=== PATIENT | female | born 1965 | race Caucasian/White ===

== ENCOUNTER 2016-12-18 07:57 | Observation (INO) | payer BC ==
[2016-12-18] MEDS ORDERED: Sodium Chloride 0.9% 1,000 ML PRIMARY IV ONE (08:13)
[2016-12-18] MEDS ORDERED: ASPIRIN 81 MG (BABY) CHEWABLE TABLET PO ONE (08:13)
[2016-12-18] MEDS ORDERED: NORMAL SALINE 10 ML SYRINGE FLUSH IVP PRN ×2 (08:13→10:01)
[2016-12-18 08:21] LABS: BASOPHILS # (AUTO) 0.04 10*3/UL; BASOPHILS % (AUTO) 0.5 % (0-1); EOSINOPHILS % (AUTO) 1.1 % (0-8); HEMATOCRIT 45.6 % (37.0-47.0); HEMOGLOBIN 15.3 g/dL (12.0-16.0); IMM GRAN % (AUTO) 0.1 % (0-5); IMM GRAN# (AUTO) 0.01 10*3/UL; LYMPHOCYTES # (AUTO) 1.95 10*3/uL; LYMPHOCYTES % (AUTO) 24.2 % (10-50); MEAN CORPUSCULAR HEMOGLOBIN 28.9 PG (27-31); MEAN CORPUSCULAR HGB CONC 33.6 g/dL (33-37); MEAN PLATELET VOLUME 10.9 FL (7.4-12.2); MONOCYTES # (AUTO) 0.51 10*3/UL (0.3-0.8); MONOCYTES % (AUTO) 6.3 % (5-15); NEUTROPHILS # (AUTO) 5.46 10*3/UL; NEUTROPHILS % (AUTO) 67.8 % (50-80); RDW COEFFICIENT OF VARIATION 12.9 % (11.5-14.5); RED BLOOD COUNT 5.29 10^6/uL (4.20-5.40); WHITE BLOOD COUNT 8.06 10^3/uL (4.8-10.8)
[2016-12-18 08:26] LABS: AMYLASE 53 U/L (30-110); ASPARTATE AMINO TRANSFERASE 21 IU/L (8-39); BILIRUBIN,TOTAL 0.6 mg/dL (0.3-1.2); BLOOD UREA NITROGEN 13 mg/dL (7-22); BUN/CREATININE RATIO 16.25 (6-20); CALCIUM 9.5 mg/dL (8.7-10.7); CHLORIDE 104 meq/L (98-112); CREATININE 0.8 mg/dL (0.50-1.20); EST GLOMERULAR FILTRATION > 60 (>60 ml/min/1.73m(2)); GLUCOSE 112 mg/dL (78-110); MAGNESIUM 1.9 mg/dL (1.6-2.4); POTASSIUM 3.4 meq/L (3.8-5.2); SODIUM 142 meq/L (135-145); TOTAL PROTEIN 7.4 g/dL (6.1-8.0)
[2016-12-18 08:28] LABS: PLATELET MORPHOLOGY COMMENT NORMAL MORPHOLOGY (NORM)
--- NOTE | 2016-12-18 08:39 | PDOC ---
Chest Pain HPI - General Chief Complaint: Chest Pain Stated Complaint: Chest pressure Date Seen by Provider: 12/18/16 Time Seen by Provider: 08:05 Source: Patient Exam Limitations: POSITIVE: No limitations Treatment Prior to Arrival: REPORTS: None Nurse's Notes Reviewed & Considered: Yes - History of Present Illness Initial Comments: The patient is a 51-year-old female who presents to the emergency department with chest pain. She states that last night she felt like she had an episode of rapid heartbeat and pounding. She subsequently had developed a midsternal chest pain associated with that. This subsequently resolved and she was able to sleep. When she got up this morning and started getting ready to take her grandson to school she had onset of pain in the left side of her chest. This pain was fairly constant however moved to different areas of her chest. She had some associated lightheadedness however denies palpitation, shortness of breath, nausea or diaphoresis. She states that she did have an episode of mild chest pain on Thursday last week associated with helping out on a project at [employer]. She states that currently while lying in the bed her pain has resolved. She reports that she has had some acid reflux symptoms recently including increased belching. She denies any history of coronary artery disease , hypertension, diabetes or hyperlipidemia. She does smoke approximately 1 pack of cigarettes per day and her dad has a history of heart disease. She did have a mild upper respiratory infection last week which seemed to have resolved. She denies any increased pain with taking a deep breath and denies any pain or swelling in her legs. She does not take any estrogen her form of control. - Patient Home Medications Home Medications: Home Medications Ascorbic Acid [Vitamin C] 1,000 mg PO QD tab 02/01/15 Multivitamin [Multi-Vitamin Daily] 1 each PO QD tab 02/01/15 Vitamin B Complex [B Complex] 1 each PO DAILY tab 02/01/15 Alprazolam [Xanax] 1 tab PO BID PRN #60 tab 03/19/16 Levothyroxine Sodium [Levoxyl] 1 tab PO DAILY #30 tab 11/27/16 Liothyronine Sodium [Cytomel] 1 tab PO DAILY #30 tab 11/27/16 - Patient Allergies Allergies/Adverse Reactions: Allergies Allergy/AdvReac Type Severity Reaction Status Date / Time No Known Allergies Allergy Verified 12/18/16 08:05 Past Medical History - heen HEENT History: Other (please comment) Additional HEENT History: WEARS GLASSES Cardiovascular History: Denies History Respiratory History: Denies History Gastrointestinal History: Denies History Genitourinary History: Denies History Endocrine History: Hypothyroidism Musculoskeletal History: Denies History Prosthesis or Implant: No Neurological History: Other (please comment) Additional Neurological History: CHRONIC NECK ISSUES WITH NECK DISCOMFORT AND ARM DISCOMFORT Blood Disorders: Denies History Psychiatric History: Denies History History of Sexually Transmitted Diseases: No Female Reproductive History: Denies History LMP: 1 YEAR AGO Cancer History: Denies History In Past Year Been Physically Harmed or Verbally Threatened: No (PER PATIENT) History of MDRO: No History of Other Communicable Diseases: No Tobacco Use: Current Every Day Smoker Alcohol Use: Rarely Substance Use Type: None Previous Surgical History: Yes Type / Date of Surgery: CHOLECYTECTOMY. NECK FUSION/ C4-C7 x3. URETHRAL SLING Anesthesia Reactions: No Malignant Hyperthermia: No Family History of Malignant Hyperthermia: No Significant Family History: Heart disease Additional Family History: FATHER HAD HEART ATTACK AT AGE 52 Past Medical History Reviewed: Reviewed - No Changes ROS - Limitations ROS Limitations: No Limitations Constitution: DENIES: Chills, Fever Cardiovascular: REPORTS: Chest Pain, Heart Racing (Last night, she states that she gets this every once in a while however last night this seemed more intense than usual), Blood Pressure Problem (She states that her blood pressure seemed like it was going up at home when she checked this morning). DENIES: Heart Palpitations, Edema Respiratory: DENIES: Cough Non Productive, Cough Productive, Hurts To Breathe, Shortness Of Breath Neurological: REPORTS: Denies Neuro Symptoms Gastrointestinal: DENIES: Abdominal Pain, Nausea, Vomitting Endocrine: REPORTS: Denies Symptoms Musculoskeletal: DENIES: Calf Pain, Lower Extremity Swelling Eyes: REPORTS: Denies Symptoms ENT: REPORTS: Denies Symptoms Skin: DENIES: Rash Chest Pain PE - General Appearance General Appearance: REPORTS: Alert, Cooperative, No Acute Distress - HEENT HEENT: POSITIVE: Head Inspection Nml, Eyes Inspection Nml, Ears Inspection Nml, Nose Inspection Nml, PERRL, EOMI - Neck Neck: REPORTS: Normal Inspection. DENIES: Lymphadenopathy - Respiratory Respiratory: REPORTS: No Respiratory Distress, Breath Sounds Normal - Cardiovascular Cardiovascular: REPORTS: Regular Rate and Rhythm, Heart Sounds Normal Peripheral Pulses: Dorsalis-pedis (R): 2+, Dorsalis-pedis (L): 2+ - Abdomen Abdomen: Soft: (All Quadrants), Denies Tenderness: (All Quadrants), No Distention: (All Quadrants) - Skin Skin: REPORTS: Intact, No Rash - Extremities Extremity: Normal ROM: (All Extremities), Normal Inspection: (All Extremities) - Neurological / Psychological Neurological: POSITIVE: Affect Apporpriate, Motor Normal, Sensation Normal, Other (No focal neurologic deficits) Chest Pain Progress - Results Reviewed by me Xrays/CTs/US Reviewed by me: Yes Lab Results Reviewed: Yes Lab Results:: Laboratory Results 12/18/16 Range/Units 08:06 WBC 8.06 (4.8-10.8) 10^3/uL RBC 5.29 (4.20-5.40) 10^6/uL Hgb 15.3 (12.0-16.0) g/dL Hct 45.6 (37.0-47.0) % MCV 86.2 (81-99) FL MCH 28.9 (27-31) PG MCHC 33.6 (33-37) g/dL RDW Std Deviation 40.7 (39-50) fL RDW Coeff of Kameron 12.9 (11.5-14.5) % Plt Count 226 (140-350) 10*3/uL MPV 10.9 (7.4-12.2) FL Immature Gran % (Auto) 0.1 (0-5) % Neut % (Auto) 67.8 (50-80) % Lymph % (Auto) 24.2 (10-50) % [place] % (Auto) 6.3 (5-15) % Eos % (Auto) 1.1 (0-8) % Baso % (Auto) 0.5 (0-1) % Immature Gran # (Auto) 0.01 10*3/UL Neut # (Auto) 5.46 10*3/UL Lymph # (Auto) 1.95 10*3/uL [place] # (Auto) 0.51 (0.3-0.8) 10*3/UL Eos # (Auto) 0.09 10*3/UL Baso # (Auto) 0.04 10*3/UL WBC Morphology Comment Normal morphology (NORM) Plt Morphology Comment Normal morphology (NORM) RBC Morph Comment Normal morphology (NORM) D-Dimer 0.25 (0.00-0.59) mg/L Sodium 142 (135-145) meq/L Potassium 3.4 L (3.8-5.2) meq/L Chloride 104 (98-112) meq/L Carbon Dioxide 26 (23-33) meq/L Anion Gap 12 (5-20) BUN 13 (7-22) mg/dL Creatinine 0.8 (0.50-1.20) mg/dL Estimated GFR > 60 (>60 ml/min/1.73m(2)) BUN/Creatinine Ratio 16.25 (6-20) Glucose 112 H (78-110) mg/dL Calculated Osmolality 294.0 H (267-292) mOsm/kg Calcium 9.5 (8.7-10.7) mg/dL Magnesium 1.9 (1.6-2.4) mg/dL Total Bilirubin 0.6 (0.3-1.2) mg/dL AST 21 (8-39) IU/L ALT 26 (9-52) IU/L Alkaline Phosphatase 72 (38-126) IU/L CK-MB (CK-2) 0.53 (0.00-5.00) NG/DL Troponin I < 0.012 (< 0.040) ng/mL Total Protein 7.4 (6.1-8.0) g/dL Albumin 4.6 (3.5-4.8) g/dL Globulin 2.8 (2.50-4.10) g/dL Albumin/Globulin Ratio 1.60 (1.3-2.0) mg/g Amylase 53 (30-110) U/L Lipase 42 (23-300) IU/L EKG Interpreted/Reviewed By Me:: Yes EKG Interpretation:: POSITIVE: Normal Sinus Rhythm, Normal Rate, Normal Intervals, Normal QRS - Patient's Progress MDM / ED Course: The patient's EKG does not reveal any obvious acute ST segment changes. She is in a sinus rhythm. She was given aspirin per chest pain protocol. By the time she was checked in and lying in the bed her pain had resolved. Her chest x-ray showed no acute changes and normal heart size, her lab work was all essentially unremarkable. She does have some risk factors for coronary artery disease, mainly smoking and family history. Her presentation is somewhat concerning for angina as her pain seems to resolve with rest. She also however has had some increased belching and reflux type symptoms. At this point felt it would be best that the patient be admitted for further cardiac monitoring and testing. The patient agreed and Dr. Golden has agreed to admit the patient. - Consult Counseled: POSITIVE: Patient, Family, RE: Lab Results, RE: Radiology Results, RE : DX, RE: Need for F/U Patient Care Time - Estimated PCT Patient Care Time (In Minutes): 30 Vital Signs - Recent Vital Signs Vital Signs: Vital Signs (Last 8 hours) Temp Pulse Pulse Resp BP Pulse Ox 12/18/16 08:01 96 12/18/16 07:57 98.4 F 98 17 152/101 93 - VS Reviewed Vital Signs Reviewed: Yes Discharge Clinical Impression: Chest pain Discharge Disposition: Admit to Observation Condition: Fair
[2016-12-18 08:47] LABS: CREATINE KINASE MB 0.53 NG/DL (0.00-5.00)
[2016-12-18 08:52] LABS: TROPONIN I < 0.012 ng/mL (< 0.040)
--- NOTE | 2016-12-18 09:27 | EKG ---
[address] [place] [address] Measurements Intervals [place] Rate: 96 P: 65 DC: 126 QRS: 62 QRSD: 80 T: 63 QT: 338 QTc: 391 Interpretive Statements SINUS RHYTHM POSSIBLE LEFT ATRIAL ENLARGEMENT [-0.1mV P WAVE IN V1/V2] Compared to ECG 06/09/2016 10:29:42 No significant changes Electronically Signed On 12-18-16 09:42:27 MST by Neal Gonzalez MD [email or web address]
--- NOTE | 2016-12-18 09:28 | DI ---
XR CXR 1VW,12/18/2016 8:13 AM: Clinical History: Chest pain Previous Exam: June 09, 2016 Findings: A single frontal radiograph of the chest is obtained, and demonstrates clear lungs. The cardiomediast inum and bony thorax are unremarkable. Overlying EKG leads are seen. Impression: Normal chest.
--- NOTE | 2016-12-18 10:16 | PDOC ---
History and Physical - History of Present Illness Date and Time of Service: 12/18/2016 10:12 AM Chief Complaint: Chest pain today History of Present Illness: This is a 51 years old female with medical history significant for history of hypothyroidism who came into the hospital with history of chest pain, she said last night she was laying in bed and then felt her heart pounding lasted less than a minute there was some achy feeling in the chest and she managed to sleep and woke up this morning she didn't have symptoms but then she did develop some achy feeling also on the left side of the chest and in the armpit and also in the middle there was no radiation to the back or to the arm there was no shortness of breath she did feel some lightheadedness and there was no palpitation today because of all the symptoms she came into the ER her EKG and blood tests were negative and she was admitted for further management. Currently she is denying any pain in her chest. She described more the feeling as pulling that she had and was about 2 out of 10. Past Medical History Medical History: 1. Hypothyroidism Surgical History: 1. Cholecystectomy. 2. History of neck surgeries before last time was in June last year Past Social History: She smokes the pack-a-day smoker for 30 years, rarely drinks no drugs. Tobacco Use: Current Every Day Smoker Substance Use Type: None Alcohol Use: Rarely Medication / Allergies Home Medications: Home Medications Medication Instructions Recorded Confirmed Type Ascorbic Acid [Vitamin C] 1,000 mg PO QD tab 02/01/15 12/18/16 History Multivitamin [Multi-Vitamin Daily] 1 each PO QD tab 02/01/15 12/18/16 History Vitamin B Complex [B Complex] 1 each PO DAILY tab 02/01/15 12/18/16 History Alprazolam [Xanax] 1 tab PO BID PRN #60 tab 03/19/16 12/18/16 Clinic Levothyroxine Sodium [Levoxyl] 1 tab PO DAILY #30 tab 11/27/16 12/18/16 Clinic Liothyronine Sodium [Cytomel] 1 tab PO DAILY #30 tab 11/27/16 12/18/16 Clinic Allergies/Adverse Reactions: Allergies Allergy/AdvReac Type Severity Reaction Status Date / Time No Known Allergies Allergy Verified 12/18/16 08:05 Review of Systems - Review of Systems All Systems: Reviewed & No Additional Complaints Except as Stated Exam - Vitals Vital Signs: Vital Signs Temperature 98.4 F Temperature Source Temporal Artery Scan Pulse Rate [Telemetry] 98 Respiratory Rate 17 Blood Pressure [Left Arm] 152/101 Pulse Ox 93 Oxygen Delivery Method Room Air Height 5 ft 4 in Weight 150 lb - General General Appearance: POSITIVE: No Acute Distress - Head Head Exam: POSITIVE: Normal Inspection - Eye Eye Exam: POSITIVE: Normal Appearance - ENT ENT Exam: POSITIVE: Normal Exam - Neck Neck Exam: POSITIVE: Normal Inspection - Respiratory Respiratory Exam: POSITIVE: Clear to Auscultation - Bilaterally - Cardiovascular Cardiovascular Exam: POSITIVE: RRR - GI/Abdominal GI/Abdominal Exam: POSITIVE: Normal Bowel Sounds, Non Tender, Non Distended, Soft - Rectal Rectal Exam: POSITIVE: Deferred - External Exam: POSITIVE: Deferred Exam: POSITIVE: Deferred - Extremities Extremities Exam: POSITIVE: Normal Inspection - Back Back Exam: POSITIVE: Normal Inspection - Neurological Neurological Exam: POSITIVE: Alert, Oriented x 3, CN II-XII Intact, Moves All Extremities Equally - Psychiatric Psychiatric Exam: POSITIVE: Normal Affect - Integumentary Integumentary Exam: POSITIVE: Normal Color Results - Labs CBC and BMP: 12/18/16 08:06 12/18/16 08:06 - EKG Data EKG Shows Normal: Sinus Rhythm - EKG Data When Compared to Previous EKG(s) There Are: Other (Poor R waves progression in the anterior leads) - Imaging Status: Report Reviewed by Me (Chest x-ray is normal) Assessment and Plan - Patient Problems (1) Chest pain Current Visit: Yes Status: Acute Comment: Atypical pain repeat her enzymes and will do a stress test will order a Lexiscan stress test because of her neck and back issues (2) Hypothyroidism Current Visit: Yes Status: Acute Comment: Same med will check her TSH
[2016-12-18] MEDS ORDERED: POTASSIUM CHLORIDE 20 MEQ TAB PO ONE (12:25)
[2016-12-18] MEDS ORDERED: ACETAMINOPHEN 325 MG TABLET PO PRN (21:34)
[2016-12-19] MEDS ORDERED: LEVOTHYROXINE 100 MCG TABLET PO SCH (06:30)
[2016-12-19 06:43] LABS: BLOOD UREA NITROGEN 13 mg/dL (7-22); BUN/CREATININE RATIO 21.66 (6-20); CHLORIDE 107 meq/L (98-112); CREATININE 0.6 mg/dL (0.50-1.20); EST GLOMERULAR FILTRATION > 60 (>60 ml/min/1.73m(2)); GLUCOSE 86 mg/dL (78-110); HDL CHOLESTEROL 48 mg/dL (40-150); POTASSIUM 4.2 meq/L (3.8-5.2); SODIUM 141 meq/L (135-145); TRIGLYCERIDES 61 mg/dL (44-200)
[2016-12-19] MEDS ORDERED: ASPIRIN 325 MG EC TABLET PO SCH (09:00)
--- NOTE | 2016-12-19 10:58 | DCSUMMARY ---
Hospitalization Summary Hospital Course: Final Discharge Diagnosis: Current Visit Problems Problem Status Priority Diagnosed Code Chest pain Acute R07.9 Hypothyroidism Acute E03.9 Diagnostic Data, Laboratory Data, and Procedures of Signifigance: Laboratory Results 12/18/16 12/18/16 12/18/16 Range/Units 08:06 14:27 19:59 WBC 8.06 (4.8-10.8) 10^3/uL RBC 5.29 (4.20-5.40) 10^6/uL Hgb 15.3 (12.0-16.0) g/dL Hct 45.6 (37.0-47.0) % MCV 86.2 (81-99) FL MCH 28.9 (27-31) PG MCHC 33.6 (33-37) g/dL RDW Std Deviation 40.7 (39-50) fL RDW Coeff of Kameron 12.9 (11.5-14.5) % Plt Count 226 (140-350) 10*3/uL MPV 10.9 (7.4-12.2) FL Immature Gran % (Auto) 0.1 (0-5) % Neut % (Auto) 67.8 (50-80) % Lymph % (Auto) 24.2 (10-50) % [place] % (Auto) 6.3 (5-15) % Eos % (Auto) 1.1 (0-8) % Baso % (Auto) 0.5 (0-1) % Immature Gran # (Auto) 0.01 10*3/UL Neut # (Auto) 5.46 10*3/UL Lymph # (Auto) 1.95 10*3/uL [place] # (Auto) 0.51 (0.3-0.8) 10*3/UL Eos # (Auto) 0.09 10*3/UL Baso # (Auto) 0.04 10*3/UL WBC Morphology Comment Normal morphology (NORM) Plt Morphology Comment Normal morphology (NORM) RBC Morph Comment Normal morphology (NORM) D-Dimer 0.25 (0.00-0.59) mg/L Sodium 142 (135-145) meq/L Potassium 3.4 L (3.8-5.2) meq/L Chloride 104 (98-112) meq/L Carbon Dioxide 26 (23-33) meq/L Anion Gap 12 (5-20) BUN 13 (7-22) mg/dL Creatinine 0.8 (0.50-1.20) mg/dL Estimated GFR > 60 (>60 ml/min/1.73m(2)) BUN/Creatinine Ratio 16.25 (6-20) Glucose 112 H (78-110) mg/dL Calculated Osmolality 294.0 H (267-292) mOsm/kg Calcium 9.5 (8.7-10.7) mg/dL Magnesium 1.9 (1.6-2.4) mg/dL Total Bilirubin 0.6 (0.3-1.2) mg/dL AST 21 (8-39) IU/L ALT 26 (9-52) IU/L Alkaline Phosphatase 72 (38-126) IU/L Total Creatine Kinase 77 90 (30-135) IU/L CK-MB (CK-2) 0.53 (0.00-5.00) NG/DL Troponin I < 0.012 < 0.012 < 0.012 (< 0.040) ng/mL Total Protein 7.4 (6.1-8.0) g/dL Albumin 4.6 (3.5-4.8) g/dL Globulin 2.8 (2.50-4.10) g/dL Albumin/Globulin Ratio 1.60 (1.3-2.0) mg/g Triglycerides (44-200) mg/dL Cholesterol (120-200) mg/dL LDL Cholesterol, Calc mg/dL VLDL Cholesterol (0-40) mg/dL HDL Cholesterol (40-150) mg/dL Cholesterol/HDL Ratio (0-4.0) RATIO Amylase 53 (30-110) U/L Lipase 42 (23-300) IU/L TSH 1.07 (0.2700-4.2000) uIU/mL 12/19/16 Range/Units 05:43 WBC (4.8-10.8) 10^3/uL RBC (4.20-5.40) 10^6/uL Hgb (12.0-16.0) g/dL Hct (37.0-47.0) % MCV (81-99) FL MCH (27-31) PG MCHC (33-37) g/dL RDW Std Deviation (39-50) fL RDW Coeff of Kameron (11.5-14.5) % Plt Count (140-350) 10*3/uL MPV (7.4-12.2) FL Immature Gran % (Auto) (0-5) % Neut % (Auto) (50-80) % Lymph % (Auto) (10-50) % [place] % (Auto) (5-15) % Eos % (Auto) (0-8) % Baso % (Auto) (0-1) % Immature Gran # (Auto) 10*3/UL Neut # (Auto) 10*3/UL Lymph # (Auto) 10*3/uL [place] # (Auto) (0.3-0.8) 10*3/UL Eos # (Auto) 10*3/UL Baso # (Auto) 10*3/UL WBC Morphology Comment (NORM) Plt Morphology Comment (NORM) RBC Morph Comment (NORM) D-Dimer (0.00-0.59) mg/L Sodium 141 (135-145) meq/L Potassium 4.2 (3.8-5.2) meq/L Chloride 107 (98-112) meq/L Carbon Dioxide 23 (23-33) meq/L Anion Gap 11 (5-20) BUN 13 (7-22) mg/dL Creatinine 0.6 (0.50-1.20) mg/dL Estimated GFR > 60 (>60 ml/min/1.73m(2)) BUN/Creatinine Ratio 21.66 H (6-20) Glucose 86 (78-110) mg/dL Calculated Osmolality 290.0 (267-292) mOsm/kg Calcium 9.0 (8.7-10.7) mg/dL Magnesium (1.6-2.4) mg/dL Total Bilirubin (0.3-1.2) mg/dL AST (8-39) IU/L ALT (9-52) IU/L Alkaline Phosphatase (38-126) IU/L Total Creatine Kinase (30-135) IU/L CK-MB (CK-2) (0.00-5.00) NG/DL Troponin I (< 0.040) ng/mL Total Protein (6.1-8.0) g/dL Albumin (3.5-4.8) g/dL Globulin (2.50-4.10) g/dL Albumin/Globulin Ratio (1.3-2.0) mg/g Triglycerides 61 (44-200) mg/dL Cholesterol 120 (120-200) mg/dL LDL Cholesterol, Calc 59.800 mg/dL VLDL Cholesterol 12 (0-40) mg/dL HDL Cholesterol 48 (40-150) mg/dL Cholesterol/HDL Ratio 2.50 (0-4.0) RATIO Amylase (30-110) U/L Lipase (23-300) IU/L TSH (0.2700-4.2000) uIU/mL History and Physical pertinent to Admission: 51-year-old female with the atypical chest pain Past Medical History Medical History: 1. Hypothyroidism Surgical History: 1. Cholecystectomy. 2. History of neck surgeries before last time was in June last year Past Social History: She smokes the pack-a-day smoker for 30 years, rarely drinks no drugs. Tobacco Use: Current Every Day Smoker Substance Use Type: None Alcohol Use: Rarely Course of Hospitalization: Is a very nice 51-year-old female with the past medical history significant for smoking and also a family history for heart disease comes into the ER because wall extending with her that she developed some chest pain troponins were negative during her hospital stay and chest pain totally resolved during her hospital stay today she had a Lexiscan stress test and according to the results she will either be discharged home and we be visiting with the supervisor shop for further planning she did not have any symptoms during her stress test. I did college and career counselor her on trying to quit smoking On the date of discharge, the patient was examined: Gen.: No acute distress, alert, nontoxic Heart: Regular rate and rhythm, no murmurs, clicks, gallops, or rubs Lungs: Clear to auscultation bilaterally, breathing is nonlabored Abdomen/GI: Normal tones on auscultation, soft, nontender, nondistended Musculoskeletal/extremities: No clubbing, cyanosis, or edema Vitals reviewed and are listed below Assessment and Plan: 1. As per discharge assessments above 2. Disposition: Home if the stress test is negative 3. Condition on discharge, stable and improved. 4. Diet: regular diet 5. Activities: resume normal activities 6. Follow-Up: 1. PCP Dr. Everett 2. 7. Medications at the Time of Discharge: Home Medications Medication Instructions Recorded Confirmed Type Ascorbic Acid [Vitamin C] 1,000 mg PO QD tab 02/01/15 12/18/16 History Multivitamin [Multi-Vitamin Daily] 1 each PO QD tab 02/01/15 12/18/16 History Vitamin B Complex [B Complex] 1 each PO DAILY tab 02/01/15 12/18/16 History Alprazolam [Xanax] 1 tab PO BID PRN #60 tab 03/19/16 12/18/16 Clinic Levothyroxine Sodium [Levoxyl] 1 tab PO DAILY #30 tab 11/27/16 12/18/16 Clinic Liothyronine Sodium [Cytomel] 1 tab PO DAILY #30 tab 11/27/16 12/18/16 Clinic 8. Time, care, counseling and coordination of care for this discharge is greater than 30 minutes. Exam - Vitals Vital Signs: Vital Signs Temperature 97.6 F Temperature Source Temporal Artery Scan Pulse Rate [Pulse Oximeter] 62 Pulse Rate [Telemetry] 68 Pulse Rate 66 Respiratory Rate 20 Blood Pressure [Left Arm] 130/76 Blood Pressure 125/92 Pulse Ox 93 Oxygen Delivery Method Room Air Height 5 ft 4 in Weight 67.313 kg
--- NOTE | 2016-12-19 10:59 | STRESSTEST ---
[facility] Interpretive Statements this is a very nice 51 yo female ,with PMHX of smoking and fam hx of heart desease comes in with chest pain now resolved. neg trops chest pain resolved, during hospital stay.Will await pictures [email or web address]
[2016-12-19 11:47] VITALS: RESP 18; TEMP 97.4
--- NOTE | 2016-12-19 17:15 | DI ---
2 DAY LEXISCAN STRESS & REST MYOCARDIAL PERFUSION SCANS, 12/18/2016 10:07 AM : Clinical History: Chest pain Previous Exam: The patient was stressed by Dr. Ontiveros The standard Lexiscan protocol was used. Please see the Doctor's report. At the designated time, 34.6 mCi of 99Tc-sestimibi was injected IV. Stress gated tomograms were acquired within one hour of the i njection. For the resting scans, 35.6 mCi was injected IV and resting gated tomograms were acquired in similar fashion. Stress scans were performed on 12/18; the resting scans were performed on 12/19. Quantitative and qualitative analyses were performed. Quantitative analysis was performed with the [place] [facility] [id number] protocols. Very low dose limited CT scans of the chest are o btained through the level of the heart for attenuation correction of the gated stress and rest cardia c SPECT data. Non-attenuated and attenuated scans were processed for review, and the attenuated scans were used for final interpretation of this study. Review of the raw data images and supplier quality engineering manager files indicate that these series of examinations ar e of excellent quality. Stress and rest left ventricular chamber sizes are normal. Stress and rest LV EF are 76 % and 83 %, respectively. There is no evidence of ischemia. There is a small mild intensity defect of the anterior la teral midslices with preservation of the apex. The very low dose CT scans through the level of the heart show no coronary artery calcifications. The re is no adenopathy or evidence of lung nodules. Reading: Normal stress test.
== END 2016-12-19 17:45 | disposition home or self-care (01) ==
LOC: ER 07:57 → MED/SURG 09:09
PROVIDERS: ADMIT Internal Medicine; ATTEND Internal Medicine
DX: R07.9 Chest pain, unspecified (principal); E03.9 Hypothyroidism, unspecified
CPT/HCPCS: 36415 ×2; 71010; 78452; 80048; 80053; 80061; 82150; 82550; 82553; 83690; 83735; 84443; 84484; 85025; 85379; 93005; 93010; 93016; 93017; 93018; 99284 ×2; A9500; J2785; J7030

== ENCOUNTER → 2016-12-29 | Outpatient (CLI) | payer BC | LOC: MOB LAB 10:27 | PROVIDERS: ATTEND Family Medicine | DX: E03.9 Hypothyroidism, unspecified (principal); R94.6 Abnormal results of thyroid function studies | CPT/HCPCS: 36415; 84439; 84481 ==

== ENCOUNTER → 2017-01-09 | Outpatient (CLI) | payer BC | LOC: LAB 09:06 | PROVIDERS: ATTEND Family Medicine | DX: R53.83 Other fatigue (principal) | CPT/HCPCS: 36415; 84443 ==